=== PATIENT | male | born 1975 | race Caucasian/White ===

== ENCOUNTER 2017-02-13 18:36 | Emergency (ER) | payer OTHER ==
--- NOTE | ~2017-02-13 | CR230 ---
[facility] A Service of [facility] & [facility] RADIOLOGY TEXT RESULTS PATIENT: JUSTIN ELLISON LOCATION: CFTX : [id number] UNIT #: [id number] AGE: [address]: Donita Santos APRN SEX: M ORDER DR: [id number] [facility] [address] [place], [place] [address] [id number] MR#: [id number] Acc #: [id number] NAME: JUSTIN ELLISON. : 1975 SEX: M STUDY DATE/TIME: 02/13/2017 18:24 UNIT: [facility] ROOM: STUDY DESCRIPTION: CR Shoulder Min 2 View Rt Attending Physician: Donita Santos A.P.R.N. Ordering Physician: Stalin Horenr M.D. Primary Care Physician: No Primary Care Physician MEDICAL IMAGING REPORT This report is preliminary unless electronic signature is present EXAM Right shoulder q. views HISTORY Shoulder pain for 10 days after strain. FINDINGS AP view with internal and external rotation of the shoulder girdle shows satisfactory relationship of the humeral head and glenoid fossa. The joint space is normal. There is no identifiable fracture or dislocation or bony destructive process about the shoulder girdle anatomy. The acromioclavicular joint is normal. There is no radiopaque foreign body in the region. IMPRESSION Normal shoulder. Dictated by... Jaden Wilson M.D. THIS IS AN ELECTRONICALLY VERIFIED REPORT Jaden Wilson M.D. at 02/13/2017 11:25 PM DFL/garcía TD: 02/13/2017 22:13 JOB #: [id number] MEDICAL IMAGING REPORT Page 1 of 1 COPY
[~2017-02-13 18:36] MED LIST: ALBUTEROL17 GM INH; BACTRIM DS PO; BENZONATATE PO; FLEXERIL10 M1 PO; IBUPROFEN800 MG PO; MEDROL4 MG/DOSE- PO; NO MEDICATIONS; NORCO1 TAB 10/3 PO; PREDNISONE5 M1 PO; PROMETHAZINE D118 ML PO; ROBAXIN 750750 MG PO; TYLENOL #3 PO; VOLTAREN PO; VOLTAREN50 MG PO; VOLTAREN75 MG PO; ZITHROMAX PO
[2017-02-15] MEDS ORDERED: VOLTAREN75 MG PO (17:56)
[2017-02-15] MEDS ORDERED: FLEXERIL10 MG PO (17:56)
== END 2017-02-13 19:15 | disposition home or self-care (01) ==
LOC: CFTX 18:36
DX: M25.511 Pain in right shoulder (principal); Z90.49 Acquired absence of other specified parts of digestive tract; Z88.0 Allergy status to penicillin; F17.210 Nicotine dependence, cigarettes, uncomplicated
CPT/HCPCS: 73030; 99283

== ENCOUNTER 2017-02-15 18:17 | Emergency (ER) | payer OTHER ==
[~2017-02-15 18:17] MED LIST changes: +FLEXERIL10 MG PO
[2017-02-15] MEDS ORDERED: ROBAXIN 750750 M1 PO (18:52)
== END 2017-02-15 18:58 | disposition home or self-care (01) ==
LOC: SED 18:17
DX: S43.421A Sprain of right rotator cuff capsule, initial encounter (principal); F17.210 Nicotine dependence, cigarettes, uncomplicated; Z90.89 Acquired absence of other organs; Z88.0 Allergy status to penicillin; X58.XXXA Exposure to other specified factors, initial encounter
CPT/HCPCS: 96372; 99283; J1885